=== PATIENT | female | born 1950 | race Caucasian/White ===

== ENCOUNTER 2017-07-11 11:17 | Emergency (ER) | payer OTHER ==
[~2017-07-11] VITALS: Ht 162.6 cm; Wt 120.5 kg
[~2017-07-11 11:17] MED LIST: APIX5TAB PO; DOXY100C PO; LEVO112T4 PO; ONDA4 PO; OXYC20TA76 PO; SIMV-260 PO
[2017-07-11] MEDS ORDERED: TraMADol HCL 50 MG TABLET PO ONE (12:30)
[2017-07-11 12:49] LABS: BASOPHILS % (AUTO) 0.4 % (0.0-2.0); EOSINOPHILS % (AUTO) 2.4 % (1.0-6.0); HEMOGLOBIN 13.2 g/dL (12.0-16.0); LYMPHOCYTES % (AUTO) 35.1 % (22.0-44.0); MEAN CORPUSCULAR HGB CONC 33.8 G/dL (31.0-37.0); MEAN CORPUSCULAR VOLUME 95 fL (80-100); MONOCYTES # (AUTO) 0.6 K/uL (0.1-1.0); MONOCYTES % (AUTO) 10.3 % (2.0-9.0); NEUTROPHILS % (AUTO) 51.8 % (40.0-70.0); PLATELET COUNT (AUTO) 180 K/uL (150-450); RED BLOOD CELL COUNT(AUTO) 4.12 MIL/uL (4.00-5.20); RED CELL DISTRIBUTION WIDTH 13.9 % (11.5-14.5); WHITE BLOOD COUNT (AUTO) 5.8 K/uL (4.5-11.0)
[2017-07-11 13:05] LABS: PROTHROMBIN TIME 10.7 SEC (9.4-11.6)
[2017-07-11 13:09] LABS: ANION GAP 7 mmol/L (8-16); CALCIUM, TOTAL 8.9 mg/dL (8.8-10.5); CARBON DIOXIDE 29 mmol/L (22-29); CHLORIDE 104 mmol/L (98-107); CREATININE 0.58 mg/dL (0.60-1.30); GLOMERULAR FILTR. RATE CALC > 60 mL/min (>60); POTASSIUM 3.5 mmol/L (3.5-5.1); SODIUM SERUM 140 mmol/L (136-145); UREA NITROGEN, BLOOD 14 mg/dL (7-18)
[2017-07-11 13:15] LABS: ALANINE AMINOTRANSFERASE 28 U/L (12-78); ALBUMIN 3.7 g/dL (3.4-5.0); ASPARTATE AMINOTRANSFERASE 18 U/L (15-37); BILIRUBIN,TOTAL 0.8 mg/dL (0.1-1.0); TOTAL PROTEIN, SERUM 7.3 g/dL (6.4-8.2)
[2017-07-11 13:35] LABS: THYROID STIMULATING HORMONE 1.93 uIU/mL (0.36-3.74)
[2017-07-11 13:44] LABS: B-TYPE NATRIURETIC PEPTIDE 59 pg/mL (0-100)
[2017-07-11] MEDS ORDERED: VANCOMYCIN HCL 1 GM/D5% WATER 200 ML IV ONE (13:45)
[2017-07-11 16:06] VITALS: BP 130/74
== END 2017-07-11 16:18 | disposition home or self-care (01) ==
LOC: EMS 11:18
DX: L03.116 Cellulitis of left lower limb (principal); E78.00 Pure hypercholesterolemia, unspecified; I10 Essential (primary) hypertension; E03.9 Hypothyroidism, unspecified
CPT/HCPCS: 36415; 80053; 83880; 84443; 85025; 85379; 85610; 85730; 87040; 93971; 96365; 96366; 99285; J3370

== ENCOUNTER 2018-10-15 22:51 | Emergency (ER) | payer MEDICARE, OTHER ==
[~2018-10-15] VITALS: Ht 165.1 cm; Wt 121.8 kg
[~2018-10-15 22:51] MED LIST changes: -APIX5TAB PO; -DOXY100C PO; -ONDA4 PO; -OXYC20TA76 PO
[2018-10-16 00:55] VITALS: BP 115/64
== END 2018-10-16 01:07 | disposition home or self-care (01) ==
LOC: EMS 22:52
DX: M79.604 Pain in right leg (principal); M79.89 Other specified soft tissue disorders; F41.9 Anxiety disorder, unspecified; E78.00 Pure hypercholesterolemia, unspecified; I10 Essential (primary) hypertension; E03.9 Hypothyroidism, unspecified; Z96.659 Presence of unspecified artificial knee joint
CPT/HCPCS: 93971

== ENCOUNTER 2022-07-01 04:40 | Emergency (ER) | payer MEDICARE ==
[~2022-07-01] VITALS: Ht 172.7 cm; Wt 122.7 kg
[2022-07-01] MEDS ORDERED: KETOROLAC TROMETHAMINE 30 MG/ML VIAL IM ONE (05:15)
[2022-07-01 06:36] VITALS: BP 140/80
[2022-07-01] MEDS ORDERED: METHOCARBAMOL 500 MG TABLET PO ONE (06:45)
[2022-07-01] MEDS ORDERED: METH-659 PO (06:54)
[2022-07-01] MEDS ORDERED: IBUP-2070 PO (06:54)
== END 2022-07-01 07:00 | disposition home or self-care (01) ==
LOC: EMS 04:41
DX: M75.31 Calcific tendinitis of right shoulder (principal); F41.9 Anxiety disorder, unspecified; E78.00 Pure hypercholesterolemia, unspecified; I10 Essential (primary) hypertension; E03.9 Hypothyroidism, unspecified; Z98.890 Other specified postprocedural states
CPT/HCPCS: 99283; 29105; 73030; 96372; J1885

== ENCOUNTER 2023-01-16 15:32 | Emergency (ER) | payer MEDICARE ==
[~2023-01-16] VITALS: Ht 165.1 cm; Wt 122.7 kg
[~2023-01-16 15:32] MED LIST changes: +IBUP-1492 PO; +METH-659 PO
[2023-01-16] MEDS ORDERED: FURO20 PO (16:09)
[2023-01-16] MEDS ORDERED: ACETAMINOPHEN 500 MG TABLET PO ONE (16:45)
[2023-01-16] MEDS ORDERED: LIDOCAINE 5% TRANSDERMAL PATCH TD ONE (16:45)
[2023-01-16 16:47] LABS: BASOPHILS % (AUTO) 0.6 % (0.0-2.0); EOSINOPHILS % (AUTO) 5.1 % (1.0-6.0); HEMATOCRIT 39.3 % (36-46); HEMOGLOBIN 12.6 g/dL (12.0-16.0); LYMPHOCYTES # (AUTO) 2.1 K/uL (1.0-4.8); LYMPHOCYTES % (AUTO) 41.4 % (22.0-44.0); MEAN CORPUSCULAR HEMOGLOBIN 30.4 pg (26.0-34.0); MEAN CORPUSCULAR HGB CONC 32.2 G/dL (31.0-37.0); MEAN CORPUSCULAR VOLUME 94 fL (80-100); MONOCYTES # (AUTO) 0.9 K/uL (0.1-1.0); NEUTROPHILS # (AUTO) 1.7 K/uL (1.8-7.7); NEUTROPHILS % (AUTO) 34.9 % (40.0-70.0); PLATELET COUNT (AUTO) 180 K/uL (150-450); RED BLOOD CELL COUNT(AUTO) 4.16 MIL/uL (4.00-5.20); RED CELL DISTRIBUTION WIDTH 14.2 % (11.5-14.5)
[2023-01-16 16:56] LABS: ANION GAP 6 mmol/L (8-16); CALCIUM, TOTAL 9.2 mg/dL (8.8-10.5); CARBON DIOXIDE 31 mmol/L (22-29); CHLORIDE 103 mmol/L (98-107); CREATININE 0.62 mg/dL (0.60-1.30); GLOMERULAR FILTR. RATE CALC > 60 mL/min (>60); GLUCOSE,RANDOM 109 mg/dL (70-110); POTASSIUM 4.2 mmol/L (3.5-5.1); SODIUM SERUM 140 mmol/L (136-145); UREA NITROGEN, BLOOD 17 mg/dL (7-18)
[2023-01-16 17:00] LABS: ALANINE AMINOTRANSFERASE 24 U/L (12-78); ALBUMIN 3.6 g/dL (3.4-5.0); ALKALINE PHOSPHATASE 89 U/L (46-116); ASPARTATE AMINOTRANSFERASE 18 U/L (15-37); BILIRUBIN,TOTAL 0.4 mg/dL (0.1-1.0); TOTAL PROTEIN, SERUM 7.5 g/dL (6.4-8.2)
[2023-01-16 17:55] LABS: APPEARANCE,URINE CLEAR (CLEAR); BILIRUBIN,URINE NEGATIVE (NEGATIVE); GLUCOSE, URINE (UA) NEGATIVE (NEGATIVE); KETONES,URINE NEGATIVE (NEGATIVE); LEUKOCYTE ESTERASE ,URINE SMALL (NEGATIVE); NITRATE,URINE NEGATIVE (NEGATIVE); OCCULT BLOOD,URINE NEGATIVE (NEGATIVE); PROTEIN,URINE NEGATIVE (NEGATIVE); SPECIFIC GRAVITIY, URINE 1.021 (1.003-1.030); UROBILINOGEN,URINE <=1.0 mg/dL (<=1.0)
[2023-01-16 18:03] LABS: BACTERIA,URINE Few /HPF (None Seen); RBC,URINE 0-2 /HPF (0-2); SQUAMOUS EPITHELIAL CELL,UR Many /LPF (None Seen)
[2023-01-16] MEDS ORDERED: LIDO700A15 TP (18:07)
[2023-01-16] MEDS ORDERED: CEPH-558 PO (18:07)
[2023-01-16] MEDS ORDERED: ACET-3385 PO (18:07)
[2023-01-16] MEDS ORDERED: CEPHALEXIN MONOHYDRATE 500 MG CAPSULE PO ONE (18:15)
[2023-01-16 18:48] VITALS: BP 145/81
== END 2023-01-16 18:49 | disposition home or self-care (01) ==
LOC: EMS 15:41
DX: M54.16 Radiculopathy, lumbar region (principal); N12 Tubulo-interstitial nephritis, not specified as acute or chronic; F41.9 Anxiety disorder, unspecified; E78.00 Pure hypercholesterolemia, unspecified; I10 Essential (primary) hypertension; Z79.899 Other long term (current) drug therapy
CPT/HCPCS: 80053; 81001; 85025; 87086; 87186; 99284

== ENCOUNTER 2023-06-19 12:54 | Emergency (ER) | payer MEDICARE ==
[~2023-06-19] VITALS: Ht 165.1 cm; Wt 127.3 kg
[~2023-06-19 12:54] MED LIST changes: +ACET-3385 PO; +CEPH-558 PO; +FURO20 PO; +LIDO700A15 TP; -METH-659 PO
[2023-06-19 13:06] VITALS: TEMP 98
[2023-06-19] MEDS ORDERED: ASPI-1450 PO (13:09)
[2023-06-19] MEDS ORDERED: HYDR-4527 PO (13:09)
[2023-06-19] MEDS ORDERED: MULT-1390 PO (13:09)
[2023-06-19] MEDS ORDERED: LEVO150 PO (13:09)
[2023-06-19] MEDS ORDERED: FURO20 PO (13:09)
[2023-06-19] MEDS ORDERED: SIMV10TA97 PO (13:09)
[2023-06-19] MEDS ORDERED: POTA8CAP20 PO (13:09)
[2023-06-19] MEDS ORDERED: KETOROLAC TROMETHAMINE 30 MG/ML VIAL IM ONE (14:30)
[2023-06-19] MEDS ORDERED: LIDOCAINE 5% TRANSDERMAL PATCH TD ONE (14:30)
[2023-06-19 16:45] VITALS: BP 154/71; PULSE 56; RESP 17
== END 2023-06-19 17:07 | disposition home or self-care (01) ==
LOC: EMS 12:54
DX: M70.61 Trochanteric bursitis, right hip (principal); F41.9 Anxiety disorder, unspecified; E78.00 Pure hypercholesterolemia, unspecified; I10 Essential (primary) hypertension; E03.9 Hypothyroidism, unspecified; Z96.659 Presence of unspecified artificial knee joint; W01.0XXA Fall on same level from slipping, tripping and stumbling without subsequent striking against object, initial encounter; Y93.89 Activity, other specified; Y92.89 Other specified places as the place of occurrence of the external cause; Y99.8 Other external cause status
CPT/HCPCS: 99285; 72131; 72192; 96372; J1885

== ENCOUNTER 2024-02-07 22:32 | Emergency (ER) | payer MEDICARE ==
[~2024-02-07] VITALS: Ht 165.1 cm; Wt 90.9 kg
[~2024-02-07 22:32] MED LIST changes: -ACET-3385 PO; +ASPI-1450 PO; -CEPH-558 PO; +HYDR-4527 PO; -IBUP-1492 PO; -LEVO112T4 PO; +LEVO150 PO; -LIDO700A15 TP; +MULT-1390 PO; +POTA8CAP20 PO; -SIMV-260 PO; +SIMV10TA97 PO
[2024-02-07 22:36] VITALS: TEMP 97.4
[2024-02-07 23:06] LABS: BASOPHILS % (AUTO) 0.8 % (0.0-2.0); EOSINOPHILS % (AUTO) 2.9 % (1.0-6.0); HEMATOCRIT 40.3 % (36-46); HEMOGLOBIN 13.3 g/dL (12.0-16.0); LYMPHOCYTES # (AUTO) 2.3 K/uL (1.0-4.8); LYMPHOCYTES % (AUTO) 33.1 % (22.0-44.0); MEAN CORPUSCULAR HEMOGLOBIN 30.9 pg (26.0-34.0); MEAN CORPUSCULAR VOLUME 94 fL (80-100); MONOCYTES # (AUTO) 0.9 K/uL (0.1-1.0); MONOCYTES % (AUTO) 12.8 % (2.0-9.0); NEUTROPHILS # (AUTO) 3.5 K/uL (1.8-7.7); NEUTROPHILS % (AUTO) 50.4 % (40.0-70.0); PLATELET COUNT (AUTO) 148 K/uL (150-450); RED BLOOD CELL COUNT(AUTO) 4.29 MIL/uL (4.00-5.20); RED CELL DISTRIBUTION WIDTH 13.4 % (11.5-14.5); WHITE BLOOD COUNT (AUTO) 6.9 K/uL (4.5-11.0)
[2024-02-07 23:10] LABS: ANION GAP 7 mmol/L (8-16); CALCIUM, TOTAL 8.8 mg/dL (8.8-10.5); CARBON DIOXIDE 28 mmol/L (22-29); CHLORIDE 103 mmol/L (98-107); CREATININE 0.73 mg/dL (0.60-1.30); GLOMERULAR FILTR. RATE CALC > 60 mL/min (>60); GLUCOSE,RANDOM 132 mg/dL (70-110); POTASSIUM 3.8 mmol/L (3.5-5.1); SODIUM SERUM 138 mmol/L (136-145); UREA NITROGEN, BLOOD 16 mg/dL (7-18)
[2024-02-07 23:16] LABS: ALANINE AMINOTRANSFERASE 29 U/L (12-78); ALBUMIN 3.4 g/dL (3.4-5.0); ALKALINE PHOSPHATASE 108 U/L (46-116); ASPARTATE AMINOTRANSFERASE 21 U/L (15-37); BILIRUBIN,TOTAL 0.6 mg/dL (0.1-1.0); TOTAL PROTEIN, SERUM 7.3 g/dL (6.4-8.2)
[2024-02-08] MEDS: ACETAMINOPHEN 500 MG TABLET PO ONE (00:47)
[2024-02-08] MEDS: ONDANSETRON HCL 4 MG TABLET PO ONE (00:47)
[2024-02-08 01:00] VITALS: BP 148/73; PULSE 72; RESP 18
[2024-02-08] MEDS ORDERED: CYCL-448 PO (01:15)
== END 2024-02-08 01:36 | disposition home or self-care (01) ==
LOC: EMS 22:32
DX: S13.4XXA Sprain of ligaments of cervical spine, initial encounter (principal); M25.512 Pain in left shoulder; E78.00 Pure hypercholesterolemia, unspecified; I10 Essential (primary) hypertension; F41.9 Anxiety disorder, unspecified; V89.2XXA Person injured in unspecified motor-vehicle accident, traffic, initial encounter; Y93.89 Activity, other specified; Y92.89 Other specified places as the place of occurrence of the external cause; Y99.8 Other external cause status
CPT/HCPCS: 80053; 85025; 36415; 72040; 73030; 99284; 70450; 72125; Q0162